=== PATIENT | male | born 1955 | race Caucasian/White ===

== ENCOUNTER 2024-06-10 20:19 | Emergency (ER) | payer BC, SELFPAY ==
[2024-06-10 20:22] VITALS: BP 126/74
[2024-06-10 20:49] LABS: COVID-19 Antigen Negative (Negative)
--- NOTE | 2024-06-10 21:19 | ED.GENMED ---
History of Present Illness
General
Chief Complaint: Fever
Source: patient and family
Exam Limitations: none
Time Seen by Provider: 06/10/24 21:05
History of Present Illness
History of Present Illness:
68yoM with a remote history of prostate cancer s/p prostatectomy presenting with his for evaluation of flu-like symptoms. Symptoms initially began yesterday. He reports cough, congestion, chills, and fevers. He spiked a fever of 105 this
evening which prompted him to come to the ED. He did take ibuprofen prior to arrival and temperature is now 98.6. Of note, patient recently returned from a trip to [place] 4 days ago. He denies any vomiting, diarrhea, chest pain, shortness of
breath. No known sick contacts.
Phy Exam
General Physical Exam
General Presentation: well appearing and no apparent distress
General age: appears stated age
General Skin: warm and dry
General Habitus: normal
General Mental: alert
ENT Exam
ENT Exam: normocephalic
Cardiovascular Exam
Cardiovascular Exam: regular rate/rhythm and no murmur
Pulmonary Exam
Pulmonary Exam: lungs clear, no respiratory distress, no rales, no crackles, no rhonchi and no wheezing
Neurological Exam
Neurological Exam: alert
Richard Coma Scale
Eye Opening: Spontaneous
Verbal Response: Oriented
Motor Response: Obeys Commands
GCS Total Score: 15
Skin Exam
Skin Exam: normal color and warm/dry
Psychiatric Exam
Psychiatric Exam: normal mood/affect
Course
Orders/Labs/Results
Orders:
Orders
06/10/24 20:30
COVID-19 Antigen Urgent
Source: Nasal Swab
Influenza A+B Rapid Molecular Urgent
GERTRUDE Source: Nasal Swab
Specimen Description:
Vital Signs
Initial and Last Documented VS:
Initial Vital Signs
Temp Pulse Resp BP Pulse Ox
98.6 F 82 16 126/74 96
06/10/24 20:22 06/10/24 20:22 06/10/24 20:22 06/10/24 20:22 06/10/24 20:22
Last Documented Vital Signs
Temp Pulse Resp BP Pulse Ox
98.6 F 82 16 126/74 96
06/10/24 20:22 06/10/24 20:22 06/10/24 20:22 06/10/24 20:22 06/10/24 20:22
MDM/Problems Addressed
Differential Diagnosis Includes:
68yoM here with flu-like symptoms x 1 day. C/o chills, fever, cough, congestion. Had a temp of 105 this evening so came to the ED. No CP/SOB. Temperature 98.6 on arrival. Remainder of vitals are stable. He is well appearing and exam is reassuring.
Differential diagnosis includes but is not limited to: COVID, influenza, other viral illness, pneumonia
Viral testing obtained in triage and patient is positive for influenza A. No indication for further workup at this time. Supportive care discussed. Advised f/u with PCP and ED return precautions discussed. Patient expressed understanding and is in
agreement with plan. He was discharged in stable condition.
*Critical Care Note
Total Time (30-74mins, 75-104mins- exclusive of procedures): Not Applicable
ED Attending Note
-
Portions of this chart may have been created with voice recognition software.� Occasional wrong word or��sound alike� substitutions may have occurred due to the inherent limitations of voice recognition software.
Discharge Plan
Departure
Patient Disposition: Home (Routine Discharge)
Date of Disposition: 06/10/24
Time of Disposition: 21:21
Patient with high blood pressure during this ER visit?: No
Discharge Problem:
Influenza A
Instructions: Flu in adults - Discharge instructions
Activity Restrictions/Additional Instructions:
Drink plenty of fluids and rest. Take Tylenol 650mg and ibuprofen 400mg-600mg every 6 hours as needed for pain. Use honey and humidifier for cough.
Please follow-up with your family doctor. Return to the ER with any worsening symptoms, trouble breathing, or signs of dehydration.
Interventions
Interventions:
*General Assessment Last Done: 06/10/24 21:23
ED- Neurological Assessment Last Done: 06/10/24 21:23
Discharge Date and Time
Print Language: [place]
[2024-06-10] MEDS: TYLENOL 650 MG PO (21:48)
== END 2024-06-10 21:58 | disposition home or self-care (01) ==
LOC: EMR 20:19
PROVIDERS: Emergency Medicine; EMERGENCY PHYSICIAN Emergency Medicine; FAMILY PHYSICIAN Family Medicine
DX: J10.1 Influenza due to other identified influenza virus with other respiratory manifestations (principal); Z11.52 Encounter for screening for COVID-19
CPT/HCPCS: 99283; 87502; 87811